=== PATIENT | male | born 1945 | race Caucasian/White ===

== ENCOUNTER 2017-10-15 00:28 | Emergency (ER) | payer OTHER, MEDICARE ==
[~2017-10-15] VITALS: Ht 180.3 cm; Wt 115.2 kg
[2017-10-15 00:48] VITALS: BP 152/95
[2017-10-15] MEDS ORDERED: HYDR-2758 PO (01:23)
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
== END 2017-10-15 04:00 | disposition home or self-care (01) ==
LOC: ER 00:28
DX: M54.2 Cervicalgia (principal); V89.2XXA Person injured in unspecified motor-vehicle accident, traffic, initial encounter; Y93.89 Activity, other specified; Y99.8 Other external cause status; Y92.410 Unspecified street and highway as the place of occurrence of the external cause
CPT/HCPCS: 70450; 72125; 99284-25

== ENCOUNTER → 2018-02-24 | Outpatient (CLI) | payer OTHER, MEDICARE ==
[2018-02-24] MEDS: ZOLPIDEM 5 MG TABLET. PO (22:00)
== END | disposition home or self-care (01) ==
LOC: SLPLAB 18:42
DX: G47.33 Obstructive sleep apnea (adult) (pediatric) (principal)
CPT/HCPCS: 95810